=== PATIENT | male | born 1975 | race Caucasian/White ===

== ENCOUNTER → 2016-11-15 | Outpatient (CLI) | payer OTHER ==
--- NOTE | 2016-11-15 16:00 | Diagnostic Imaging Report ---
Indication: COUGH Technique: Two views of the chest Comparison: none Findings: Lungs are equivocally somewhat hyperinflated. Blunting of the bilateral costophrenic angles possibly on the basis of hyperinflation, but small pleural effusions not completely excludable. Size is normal. Impression: Equivocal hyperinflation, may indicate COPD. Correlate with clinical history Bilateral costophrenic angle blunting, likely related to the above, small effusions not completely excludable. No acute process otherwise
== END | disposition home or self-care (01) ==
LOC: RAD 15:00
DX: Z01.818 Encounter for other preprocedural examination (principal)
CPT/HCPCS: 71020